=== PATIENT | male | born 1995 | race Caucasian/White ===

== ENCOUNTER 2025-08-29 10:50 | Emergency (ER) | payer SELFPAY ==
[2025-08-29 11:20] VITALS: BP 147/95; PULSE 79; RESP 18; TEMP 37.1; O2SAT 100; BMI 25.1
[2025-08-29 11:43] LABS: Hematocrit 49.0 % (37-53); Hemoglobin 16.70 g/dL (11.27-16.99); Mean Corpuscular HGB Conc 34.1 g/dL (30-55); Mean Corpuscular Hemoglobin 29.3 pg (27-33); Mean Corpuscular Volume 86.0 fl (82-101); Nucleated Red Blood Cells % 0 %; Platelet Count 311 10^3/cmm (157-399); Red Blood Count 5.70 10^6/uL (3.85-5.65); White Blood Count 9.35 10^3/uL (3.29-11.43)
--- NOTE | 2025-08-29 11:49 | ED_ITS ---
HPI - Nausea/Vomiting/Diarrhea 2 General: Chief complaint: Nausea/Vomiting/Diarrhea Stated complaint: Dizzy / NV Time Seen by Provider: 08/29/25 11:35 Source: patient Mode of arrival: ambulatory Limitations: no limitations History of Present Illness: Patient is a 29-year-old male with no known past medical history here for complaints of nausea, vomiting, dizziness. He states symptoms started on Monday (2 days ago) when he began feeling dizzy. He thought maybe it was secondary to just not having ate or drink much throughout the day. He states he did continue his day normally and did hold down food and drink throughout the day. He states he woke up this morning and still continued to feel dizzy and has threw up multiple times. He is not complaining of abdominal pain. No diarrhea. No fevers. Despite his dizziness, patient is ambulatory here in the emergency department without difficulty or assistance. He has continued to function normally at home and drive. He does not complain of any hearing loss, tinnitus, ear pain. No headache. No focal neurologic deficits. He arrives with stable vital signs. MD elicited complaint: nausea and vomiting Onset (ago): day(s) Associated nausea: Yes Associated abdominal pain: No Location of pain: None Exacerbating factors: eating Relieving factors: none Associated symtoms: Reports dizziness and nausea; Denies chest pain, dysuria, fatigue, headache(s) or malaise Related Data Previous Rx's ?Medication ?Instructions ?Recorded ondansetron 4 mg disintegrating 4 mg PO Q8H PRN nausea and 08/29/25 tablet vomiting #14 tabs Allergies Allergy/AdvReac Type Severity Reaction Status Date / Time No Known Allergies Allergy Verified 08/29/25 11:28 Review of Systems 2 Const: Denies: fever(s), chills, body aches, fatigue or malaise Card: Denies: chest pain Resp: Denies: dyspnea GI: Reports: nausea and vomiting; Denies: abdominal pain, hematemesis or change in bowel habits : Denies: flank pain, difficulty urinating, dysuria, urinary frequency, urinary urgency or urinary hesitancy Musc: Denies: neck pain, back pain, extremity pain, extremity swelling, joint pain, joint swelling or joint redness Skin/Breast: Denies: rash Neuro: Reports: dizziness; Denies: headache(s), numbness in extremities, weakness in extremities or sensory changes Physical Exam 2 Const: COMMON NORMALS: no acute distress, average body habitus, patient oriented x3, no limitations, healthy appearing, alert and well nourished G ENERAL APPEARANCE: cooperative ORIENTATION/CONSCIOUSNESS: Yes awake, Yes oriented to person, Yes oriented to place and Yes oriented to time HENMT: COMMON NORMALS: normocephalic, atraumatic, EAC's normal and TM's normal bilaterally HEAD & SCALP: normal to inspection, normocephalic and atraumatic FACE & SINUS: normal facial exam and face symmetric EXTERNAL AUDITORY CANAL: EAC's normal TYMPANIC MEMBRANE: TM's normal bilaterally Eye: COMMON NORMALS: Equal, round and reactive pupils present and EOMs intact bilaterally GENERAL EYE: appearance normal, both eyes and all related structures and normal light reflex PUPIL: Yes Equal, round and reactive pupils present DIRECT OPHTHALMOSCOPY: Yes normal light reflex OTHER: no nystagmus Neck/C-Spine: COMMON NORMALS: full ROM, no lymphadenopathy, supple and no meningeal signs Chest: COMMONS NORMALS: normal inspection of the chest Resp: COMMON NORMALS: normal respiratory effort and clear to auscultation bilaterally AUSCULTATION: clear to auscultation bilaterally Cardio: COMMON NORMALS: regular rate and regular rhythm RATE: regular rate RHYTHM: regular rhythm GI: COMMON NORMALS: Normal to inspection, nondistended, normoactive bowel sounds present, Soft to palpation, non-tender, No hepatosplenomegaly present and no masses PALPATION: Yes Soft to palpation and Yes No hepatosplenomegaly present : COMMON NORMALS: Yes no CVA tenderness BLADDER/KIDNEY EXAM: Yes no CVA tenderness Back/Pelvis: COMMON NORMALS: no CVA tenderness and thoracic and lumbar spine normal to inspection Extremity: COMMON NORMALS: normal to inspection GENERAL: Yes normal exam except as noted Neuro: CYNDEE COMA SCALE: document GCS findings [place] coma scale eye opening: Spontaneous [place] coma scale verbal response: Orientated [facility] coma scale motor response: Obey commands [facility] coma scale total score: 15 COMMON NORMALS: patient oriented x3, CN's II-XII intact bilaterally, moves all extremities, no focal motor deficits, no sensory deficits noted and gait normal SENSORIUM/ORIENTATION: Yes alert, Yes oriented to person, Yes oriented to place and Yes oriented to time MENINGEAL SIGNS: Yes no meningeal signs Skin: COMMON NORMALS: no rashes or lesions noted GENERAL SKIN EXAM: no rashes or lesions noted Course 2 Vital Signs: Vital signs: Vital Signs Temperature 98.7 F 08/29/25 11:20 Pulse Rate 79 08/29/25 11:20 Respiratory Rate 18 08/29/25 11:20 Blood Pressure 147/95 08/29/25 11:20 Pulse Oximetry 100 08/29/25 11:20 Oxygen Delivery Me thod Room Air 08/29/25 11:20 MDM - Nausea/Vomiting/Diarrhea Medical Decision Making Patient has not had any vomiting while here. He is ambulatory here in the emergency department without difficulty or assistance. His vital signs are unremarkable. Blood work overall is nonactionable. His white count is normal. Electrolytes are normal. He has a nonspecific elevation to his t. bili at 1.8. His AST/ALT are normal. He is not complaining of any abdominal pain. His abdomen is soft and nontender. UA does not appear infected but was positive for 2+ ketones. He was given IV fluids here. He has held down water. Will treat with antiemetics and allowed discharge from the emergency department. Would like him to follow-up with primary care next week for re-evaluation if symptoms do not improve. Return ED precautions discussed. Of note, he is a habitual marijuana user-unknown whether this could be contributing to symptoms. Medical Records I reviewed the patient's medical records. Lab Data I reviewed the patient's lab results. 08/29/25 11:37 08/29/25 11:37 Laboratory Results WBC 9.35 10^3/uL (3.29-11.43) 08/29/25 11:37 RBC 5.70 10^6/uL (3.85-5.65) H 08/29/25 11:37 Hgb 16.70 g/dL (11.27-16.99) 08/29/25 11:37 Hct 49.0 % (37-53) 08/29/25 11:37 MCV 86.0 fl (82-101) 08/29/25 11:37 MCH 29.3 pg (27-33) 08/29/25 11:37 MCHC 34.1 g/dL (30-55) 08/29/25 11:37 RDW 12.0 % (12.1-15.1) L 08/29/25 11:37 Plt Count 311 10^3/cmm (157-399) 08/29/25 11:37 MPV 9.5 fL (7.4-10.4) 08/29/25 11:37 Neut % (Auto) 61.6 % 08/29/25 11:37 Lymph % (Auto) 30.1 % 08/29/25 11:37 Saunders % (Auto) 6.0 % 08/29/25 11:37 Eos % (Auto) 1.4 % 08/29/25 11:37 Baso % (Auto) 0.7 % 08/29/25 11:37 Neut # (Auto) 5.76 10^3/uL (1.8-7.7) 08/29/25 11:37 Lymph # (Auto) 2.8 10^3/uL (0.8-4.8) 08/29/25 11:37 Saunders # (Auto) 0.6 10^3/uL (0.2-0.9) 08/29/25 11:37 Eos # (Auto) 0.1 10^3/uL (0.0-0.8) 08/29/25 11:37 Baso # (Auto) 0.1 10^3/uL (0.0-0.1) 08/29/25 11:37 Nucleated RBC % (auto) 0 % 08/29/25 11:37 Nucleated RBCs # 0.0 /100WBC 08/29/25 11:37 Sodium 138 mmol/L (136-145) 08/29/25 11:37 Potassium 3.8 mmol/L (3.5-5.1) 08/29/25 11:37 Chloride 100 mmol/L (98-107) 08/29/25 11:37 Carbon Dioxide 22 mmol/L (22-29) 08/29/25 11:37 Anion Gap 19.8 (5-19) H 08/29/25 11:37 BUN 9 mg/dL (6-20) 08/29/25 11:37 Creatinine 0.8 mg/dL (0.7-1.2) 08/29/25 11:37 GFR Calculation 115.1 mL/min (90-130) 08/29/25 11:37 Glucose 102 mg/dL (65-115) 08/29/25 11:37 Calculated Osmolality 285 mOsm/kg (285-295) 08/29/25 11:37 Calcium 10.0 mg/dL (8.5-10.5) 08/29/25 11:37 Total Bilirubin 1.8 mg/dL (0.15-1.2) H 08/29/25 11:37 AST 15 U/L (0-40) 08/29/25 11:37 ALT 17 U/L (0-41) 08/29/25 11:37 Alkaline Phosphatase 141 U/L (40-130) H 08/29/25 11:37 Total Protein 7.9 g/dL (6.6-8.7) 08/29/25 11:37 Albumin 5.2 g/dL (3.5-5.2) 08/29/25 11:37 Globulin 2.7 g/dL (1.3-4.6) 08/29/25 11:37 Lipase 60 U/L (13-60) 08/29/25 11:37 Urine Color Yellow (Yellow) 08/29/25 11:44 Urine Appearance Clear (CLEAR) 08/29/25 11:44 Urine pH 6.5 (5-7) 08/29/25 11:44 Ur Specific [place] 1.020 (1.005-1.030) 08/29/25 11:44 Urine Protein Trace (Negative) A 08/29/25 11:44 Urine Glucose (UA) Negative (Normal) 08/29/25 11:44 Urine Ketones 2+ (Negative) H 08/29/25 11:44 Urine Blood Negative (Negative) 08/29/25 11:44 Urine Nitrate Negative (Negative) 08/29/25 11:44 Urine Bilirubin Negative (Negative) 08/29/25 11:44 Urine Urobilinogen 1.0 mg/dL (Negative) 08/29/25 11:44 Ur Leukocyte Esterase Negative (Negative) 08/29/25 11:44 Urine RBC 0-2 /hpf (0-2) 08/29/25 11:44 Urine WBC 0-5 /hpf (0-5) 08/29/25 11:44 Ur Squamous Epith Cells 0-5 /hpf (0-5) 08/29/25 11:44 Amorphous Sediment Not Reportable 08/29/25 11:44 Urine Bacteria None seen /hpf (NONE) 08/29/25 11:44 Hyaline Casts 2.05 /lpf 08/29/25 11:44 No radiology studies performed this visit Discharge Plan Discharge Patient Disposition: Home Clinical Impression: Dehydration Nausea and vomiting Qualifiers: Vomiting type: unspecified Qualified Code(s): R11.2 - Nausea with vomiting, unspecified Condition: Stable Prescriptions: New ondansetron 4 mg tablet,disintegrating 4 mg PO Q8H PRN (Reason: nausea and vomiting) Qty: 14 0RF Discharge Orders: Discharge ED (Routine); Ordered 08/29/25 Ordered By: Mecca Celaya Referrals: Lisandro Hart MD [Primary Care Provider, Family Practice] Patient Instructions: Patient Portal & [facility] Instructions Activity Restrictions/Additional Instructions: As we discussed, I will call you in some medications for nausea and vomiting. Continue to push fluids is much as possible. You may return to the emergency department for any further concerns you may have. Otherwise you can follow-up with primary care in a week or so if symptoms are not improving. Print Language: Italian Coding Level of Care Code ED [employer] Technician for Minal Brooks
[2025-08-29 12:00] LABS: Alanine Aminotransferase 17 U/L (0-41); Albumin Level 5.2 g/dL (3.5-5.2); Alkaline Phosphatase 141 U/L (40-130); Anion Gap 19.8 (5-19); Aspartate Amino Transferase 15 U/L (0-40); Blood Urea Nitrogen 9 mg/dL (6-20); Calcium 10.0 mg/dL (8.5-10.5); Carbon Dioxide 22 mmol/L (22-29); Chloride 100 mmol/L (98-107); Creatinine Clr Calc Pharmacy 142.4586; Globulin 2.7 g/dL (1.3-4.6); Glucose 102 mg/dL (65-115); Lipase 60 U/L (13-60); Osmolality Calculated 285 mOsm/kg (285-295); Potassium 3.8 mmol/L (3.5-5.1); Sodium 138 mmol/L (136-145); Total Protein 7.9 g/dL (6.6-8.7)
[2025-08-29] MEDS: LORazepam 2 mg/mL INJ 1 mL 1 MG IVP (12:38)
[2025-08-29] MEDS: ondansetron 2 mg/ML SDV 2 mL 4 MG IVP (12:38)
[2025-08-29 12:40] LABS: Glucose Urine UA Negative (Normal); Nitrate Urine Negative (Negative); Specific Gravity, Urine 1.020 (1.005-1.030)
[2025-08-29 12:45] LABS: Add Urine Microscopic? YES; Universal Test for UA Present (0)
[2025-08-29 13:36] VITALS: BP 138/96; PULSE 81; O2SAT 96
== END 2025-08-29 13:37 | disposition home or self-care (01) ==
PROVIDERS: Emergency Provider Physician Assistant; PCP Family Medicine
DX: E86.0 Dehydration (principal); R11.2 Nausea with vomiting, unspecified
CPT/HCPCS: 36415; 80053; 81001; 83690; 85025; 96374; 96375; 99284; J2060; J2405; J7030